=== PATIENT | female | born 1980 | race Caucasian/White ===

== ENCOUNTER 2019-01-29 05:53 | Emergency (ER) | payer OTHER ==
[2019-01-29 06:08] VITALS: BP 121/95; PULSE 92; TEMP 97.4; BMI 22.2
[2019-01-29] MEDS ORDERED: FOLIC ACID INJECTION - 1 MG, THIAMINE HCL 100 MG, MULTIVIT INJECTION ADULT 10 ML in SOD... IVPB ONE (06:21)
[2019-01-29] MEDS ORDERED: chlordiazePOXIDE HCL 25 MG CAPSULE PO ONE ×2 (06:21→08:47)
[2019-01-29] MEDS ORDERED: chlordiazePOXIDE HCL 25 MG CAPSULE ONE ×2 (06:32→09:28)
--- NOTE | 2019-01-29 06:36 | PDOC ---
History of Present Illness - General Chief Complaint: Alcohol intoxication Stated Complaint: ALCOHOL WITHDRAWAL Time Seen by Provider: 01/29/19 06:08 - History of Present Illness Initial Comments: Marianna Kaur is an otherwise healthy 38yo woman with a PMH of alcohol abuse who presents reporting alcohol withdrawal. She states that she was a daily drinker in the past but went to rehab in about 2014. She mostly stopped drinking for 3 years but started drinking daily again for the past 6 months. She reports 10-12 shots of vodka daily. Last night, she drank an entire 1L bottle of vodka. Her last drink was 12 hours ago. Currently she says that she feels tremulous, sweaty, and nauseated. She denies vomiting, chest pain, difficulty breathing, other substance use, recent illness or other symptoms. She does not believe she could be ; LMP was 01/06/19. Past History - Past Medical History Allergies/Adverse Reactions: Allergies Allergy/AdvReac Type Severity Reaction Status Date / Time No Known Allergies Allergy Verified 01/29/19 06:05 Home Medications: Ambulatory Orders No Home Medications 0 dose .ROUTE UTDICT 09/16/12 - Psycho Social/Smoking Cessation Hx Smoking Status: No Smoking History: Never smoked Have you smoked in the past 12 months: No Number of Cigarettes Smoked Daily: 1 Information on smoking cessation initiated: No Hx Alcohol Use: No Drug/Substance Use Hx: No Substance Use Type: Alcohol Review of Systems - Review of Systems Comments:: General: No fevers, no chills, no weight or appetite change, + malaise HEENT: No changes in vision, no changes in hearing, no congestion, no sore throat CV: No chest pain, no palpitations, no LE edema, +racing heart Pulm: No SOB, no cough, no wheezing GI: + nausea, no vomiting, no change in bowel habits, no melena : No frequency, no urgency, no dysuria Musc: No back pain, no joint swelling, no recent injury Skin: No rash, no lesions, no erythema Endo: No excessive thirst, no heat/cold intolerance Heme: No unusual bruising or bleeding, no swollen glands Neuro: No syncope, no numbness/tingling, no focal weakness Vasc: No claudication Psych: No recent change in mood, no SI or HI *Physical Exam - Vital Signs Last Vital Signs Temp Pulse Resp BP Pulse Ox 97.4 F L 92 H 20 121/95 100 01/29/19 06:05 01/29/19 06:05 01/29/19 06:05 01/29/19 06:05 01/29/19 06:05 - Physical Exam Comments: General: Uncomfortable but in no acute distress HEENT: Atraumatic, PERRL, EOMI, MMM, voice normal, normal neck ROM Cards: RRR, no murmur appreciated Pulm: Comfortable on room air, clear to auscultation bilaterally Abd: Soft, nontender, nondistended Ext: Atraumatic. No LE edema. ROM intact. WWP Neuro: A&Ox3, CN grossly intact, normal speech, motor/sensory grossly intact and symmetric. No tongue fasciculations, no nystagmus, no hand trembling noted Psych: Tearful, upset ED Treatment Course - LABORATORY CBC & Chemistry Diagram: 01/29/19 06:10 01/29/19 06:10 Medical Decision Making - Medical Decision Making 01/29/19 06:24 Marianna Kaur is an otherwise healthy 38yo woman with a PMH of alcohol abuse who presents reporting tremors, sweating, and nausea that she states are due to alcohol withdrawal. She reports 10-12 drinks per day for the past 6 months, last drink 12 hours ago. Ms Kaur is notably upset and tearful as well. - Ddx includes alcohol withdrawal, anxiety, electrolyte abnormality, - CBC, CMP, bHCG - Banana bag, 25mg librium 01/29/19 06:59 - Labs sent, pending - Sign out given to Dr Freeman for the remainder of her ED care. Discussed with Dr Haim Daniel PGY2 Discharge - Discharge Information Problems reviewed: Yes Clinical Impression/Diagnosis: Alcohol dependence Qualifiers: Substance use status: in withdrawal Complication of substance-induced condition : uncomplicated Qualified Code(s): F10.230 - Alcohol dependence with withdrawal , uncomplicated - Follow up/Referral Referrals: Ritu Ta MD [Primary Care Provider] - - Patient Discharge Instructions - Post Discharge Activity
[2019-01-29 06:43] LABS: BASO % 0.2 % (0-2.0); EOS % 0.2 % (0-4.5); HEMOGLOBIN 13.4 GM/dL (10.7-15.3); MCH 31.9 pg (25.7-33.7); MCHC 33.6 g/dl (32.0-36.0); MEAN CELL VOLUME 95.1 fl (80-96); MONO % 3.7 % (3.8-10.2); NEUT % 78.9 % (42.8-82.8); PLATELET COUNT 265 K/MM3 (134-434); RDW 12.9 % (11.6-15.6); WHITE BLOOD COUNT 11.7 K/mm3 (4.0-10.0)
--- NOTE | 2019-01-29 06:57 | PDOC ---
Attending Attestation - Resident Resident Name: Ashlyn Daniel - ED Attending Attestation I have performed the following: I have examined & evaluated the patient, The case was reviewed & discussed with the resident, I agree w/resident's findings & plan, Exceptions are as noted - HPI HPI: 01/29/19 07:35 See resident HPI - Physicial Exam PE: 01/29/19 07:35 Agree with resident exam - Medical Decision Making 01/29/19 07:36 History of EtOH abuse s/p rehab, dry until 6 months ago when she relapsed Daily vodka progressively increasing volume, finished a liter in 24 hours 12 hours ago Now with nausea, diaphoresis, subjective shakiness withdrawal? electrolyte derangement? ? f/u labs ivf, banana bag If medical eval wnl, pt considering rehab at [facility] per clinical course
[2019-01-29 07:27] LABS: ALBUMIN 3.9 g/dl (3.4-5.0); ALK PHOS 52 U/L (45-117); ANION GAP 10 MMOL/L (8-16); BILIRUBIN,TOTAL 0.4 mg/dL (0.2-1); BLOOD UREA NITROGEN 18.3 mg/dL (7-18); CALCIUM 8.4 mg/dL (8.5-10.1); CHLORIDE 104 mmol/L (98-107); CO2 23 mmol/L (21-32); CREATININE 0.9 mg/dL (0.55-1.3); GLUCOSE,RANDOM 105 mg/dL (74-106); MAGNESIUM 1.7 mg/dL (1.8-2.4); POTASSIUM 3.6 mmol/L (3.5-5.1); SGOT/AST 23 U/L (15-37); SGPT/ALT 24 U/L (13-61); SODIUM 137 mmol/L (136-145)
--- NOTE | 2019-01-29 10:29 | PDOC ---
*Physical Exam - Vital Signs Last Vital Signs Temp Pulse Resp BP Pulse Ox 97.4 F L 92 H 20 121/95 100 01/29/19 06:05 01/29/19 06:05 01/29/19 06:05 01/29/19 06:05 01/29/19 06:05 ED Treatment Course - LABORATORY CBC & Chemistry Diagram: 01/29/19 06:10 01/29/19 06:10 - ADDITIONAL ORDERS Additional order review: Laboratory Results 01/29/19 01/29/19 06:10 06:10 Sodium 137 Potassium 3.6 Chloride 104 Carbon Dioxide 23 Anion Gap 10 BUN 18.3 H Creatinine 0.9 Est GFR (CKD-EPI)AfAm 93.35 Est GFR (CKD-EPI)NonAf 80.54 Random Glucose 105 Calcium 8.4 L Magnesium 1.7 L Total Bilirubin 0.4 AST 23 ALT 24 Alkaline Phosphatase 52 Creatine Kinase 61 Troponin I < 0.02 Total Protein 7.0 Albumin 3.9 TSH 2.61 Beta HCG, Quant < 1.0 01/29/19 06:10 RBC 4.20 MCV 95.1 MCHC 33.6 RDW 12.9 MPV 8.0 D Neutrophils % 78.9 Lymphocytes % 17.0 D Monocytes % 3.7 L Eosinophils % 0.2 Basophils % 0.2 - Medications Given in the ED: ED Medications Discontinued Medications Generic Name Dose Route Start Last Admin Trade Name Phiq PRN Reason Stop Dose Admin Chlordiazepoxide HCl 25 mg 01/29/19 06:21 01/29/19 06:34 Librium - PO 01/29/19 06:22 25 mg ONCE ONE Administration Chlordiazepoxide HCl 50 mg 01/29/19 08:47 01/29/19 09:31 Librium - PO 01/29/19 08:48 50 mg ONCE ONE Administration Medical Decision Making - Medical Decision Making 01/29/19 10:23 S/O from night team 38 yo female pmh alcohol abuse presents to ED in acute alcohol withdrawal ( tremors, sweating) pt reports 10-12 drinks per day for the last 6 months, last drink was yesterday. Labs neg for electrolyte abn, signs of infection, LFTs normal, neg Pt received Banana bag and a total of 75 mg librium Discussed need for detox multiple times by myself and the Attending Physician Dr. Natarajan, pt refused. Offered admission to the hospital for treatment and pt continues to refuse. Made the pt aware that alcohol withdrawal is life threatening and she may if she decides to leave withot further treatment. Pt has full capacity, signs AMA form. Discharge - Discharge Information Problems reviewed: Yes Clinical Impression/Diagnosis: Alcohol dependence Qualifiers: Substance use status: in withdrawal Complication of substance-induced condition : uncomplicated Qualified Code(s): F10.230 - Alcohol dependence with withdrawal , uncomplicated Disposition: AGAINST MEDICAL ADVICE - Follow up/Referral Referrals: Ritu Ta MD [Primary Care Provider] - [facility] [Provider Group] - Patient Discharge Instructions Patient Printed Discharge Instructions: DI for Alcohol Abuse, DI for Drug or Alcohol Withdrawal Additional Instructions: You were seen in the ER today for alcohol withdrawl. You require admission to a detox center for treatment however, you are leaving against medical advice to go home. You were made aware that you may as a result of not being treated. You were provided information on alcohol withdrawl and a location to check into if you so wish to do. Please go to your closest ER if you decide to receive treatment. Thank you - Post Discharge Activity
== END 2019-01-29 11:18 | disposition left against medical advice (07) ==
LOC: JER 05:53
PROC: 3E033GC Introduction of Other Therapeutic Substance into Peripheral Vein, Percutaneous Approach (ICD-10-PCS; principal; 2019-01-29)
DX: F10.230 Alcohol dependence with withdrawal, uncomplicated (principal)
CPT/HCPCS: 36415; 80053; 82550; 83735; 84443; 84484; 84702; 85025; 99284-25; J7030